=== PATIENT | male | born 1990 | race Caucasian/White ===

== ENCOUNTER 2017-01-19 08:24 | Emergency (ER) | payer MEDICARE, OTHER ==
[2017-01-19 09:00] LABS: Urine Drugs of Abuse Note Disclamer
[2017-01-19 09:12] LABS: Basophils % (Auto) 1.5 % (0.0-1.8); Eosinophils % (Auto) 5.5 % (0.0-4.3); Hemoglobin 14.8 gm/dl (11.8-15.2); Mean Corpuscular HGB Conc 32 % (32-34); Mean Corpuscular Hemoglobin 31 pg (28-32); Mean Corpuscular Volume 96 fl (84-94); Platelet Count 245 K/mm3 (140-440); Red Blood Count 4.81 M/mm3 (3.65-5.03); Red Cell Distribution Width 13.2 % (13.2-15.2); White Blood Count 5.7 K/mm3 (4.5-11.0)
[2017-01-19 09:14] LABS: Bilirubin,Urine NEG (Negative); Blood,Urine NEG (Negative); Ketones,Urine NEG (Negative); Leukocyte Esterase,Urine NEG (Negative); Mucus,Urine FEW /HPF; Nitrite,Urine NEG (Negative); Protein,Urine <15 mg/dL mg/dL (Negative); Urobilinogen,Urine < 2.0 mg/dL (<2.0)
[2017-01-19 09:19] LABS: Anion Gap 17 mmol/L; Blood Urea Nitrogen 6 mg/dL (9-20); Calcium 9.2 mg/dL (8.4-10.2); Carbon Dioxide 27 mmol/L (22-30); Chloride 100.9 mmol/L (98-107); Glucose 96 mg/dL (75-100); Potassium 4.6 mmol/L (3.6-5.0); Sodium 140 mmol/L (137-145)
[2017-01-19] MEDS ORDERED: HALDOL IM ONE (09:19)
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
[2017-01-19] MEDS ORDERED: HALDOL PO PRN (10:00)
[2017-01-19] MEDS ORDERED: BENZTROPINE 1 MG PO SCH (10:00)
[2017-01-19] MEDS ORDERED: HALDOL 5 MG PO SCH (10:00)
[2017-01-19] MEDS: COGENTIN PO SCH ×2 (10:17→22:21)
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
[2017-01-19] MEDS: ATIVAN IM PRN (15:56)
[2017-01-19] MEDS ORDERED: HALDOL PO SCH (22:00)
[2017-01-19] MEDS: HALDOL PO SCH (22:39)
[2017-01-20] MEDS ORDERED: HALDOL PO SCH (10:00)
[2017-01-20] MEDS: COGENTIN PO SCH ×2 (10:38→22:28)
[2017-01-20] MEDS: HALDOL PO SCH ×2 (10:38→22:28)
--- NOTE | 2017-01-20 14:17 | Progress Note ---
Subjective - Reason for Consult Consult date: 01/20/17 Reason for consult: Psychiatry Follow-up - Chief Complaint Chief complaint: "When can I leave" The patient is brought to the hospital by EMS and his family for aggressive behavior. Today patient is calm and cooperative during the assessment. He stated that he would like to be discharged soon, because he want to "head" to [place]. During our conversation, the patient would answer in third person. He stated, "I talk like this all the time." Per the staff, no behavioral disturbances overnight. He denies SI/HI's, AVH's, and depression. He denies any side effects of his medications. Mental Status Exam - Vital signs Last Vital Signs Temp 98.2 F 01/20/17 12:00 Pulse 80 01/20/17 12:00 Resp 16 01/20/17 12:00 BP 122/78 01/20/17 12:00 Pulse Ox 100 01/20/17 12:00 - Exam Narrative exam: MSE: Appearance: calm, cooperative Behavior: regular eye contact Speech: regular rate and tone Mood: "good" Affect: congruent to mood Thought Process: circumstantial Thought Content: denies SI/HI's and AVH's Motor Activity: ambulatory Cognition: A/Ox 3 Insight: limited Judgment: limited Assessment and Plan Impression: Historical Dx: Schizophrenia paranoid type. Unspecified Psychotic DO. Substance Use DO (marijuana). Today patient is calm and cooperative during the assessment. Positive for marijuana. Recommendation/Plan: Evaluate 1013 in 24 hours to determine proper dispo. Continue Haldol 5 mg PO BID for Schizophrenia and Cogentin 1 mg BID for EPS prevention. Patient maybe a candidate for long acting antipsychotic monthly injection.
[2017-01-20] MEDS: ATIVAN IM PRN (20:03)
--- NOTE | 2017-01-21 08:48 | Progress Note ---
Subjective - Reason for Consult Reason for consult: psych consult - Chief Complaint Chief complaint: 26 year old BM. Currently the patient notes that he is doing well. He continues to be preoccupied with returning home. There hasn't been any acute issues per nursing. He denies any SI/HI/AH/VH. No physical aggression per staff. He notes that he has to take his meds at home. Mental Status Exam - Vital signs Last Vital Signs Temp 98 F 01/20/17 20:04 Pulse 76 01/20/17 20:04 Resp 18 01/20/17 20:04 BP 127/69 01/20/17 20:04 Pulse Ox 100 01/20/17 20:04 - Exam Orientation: time, place Affect: normal Mood: appropriate Thought content: other (perseverence) Perceptions: none Speech: normal rate and pattern Concentration: distractible Motor activity: normal Level of consciousness: alert Memory: Intact Interaction: pleasant Assessment and Plan Impression: Historical Dx: Schizophrenia paranoid type. Unspecified Psychotic DO. Substance Use DO (marijuana). Today patient is calm and cooperative during the assessment. Positive for marijuana. Recommendation/Plan: Rescind 1013. At this time we need the collateral from his father to determine whether patient is at baseline. He does have an intellectual disability and as such may have minimal understanding of his illness and actions. His family can help us determine whether he continues to pose any risk of harm. Here he hasn't shown any acute concerns and is safe for coming off the 1013.
[2017-01-21] MEDS: COGENTIN PO SCH (09:41)
[2017-01-21] MEDS: HALDOL PO SCH (09:41)
[2017-01-21 14:07] VITALS: BP 117/68
== END 2017-01-21 14:15 ==
LOC: ED 08:24 → EEVIPCON 08:24 → ED 01-21 14:15
DX: F31.9 Bipolar disorder, unspecified (principal); F20.9 Schizophrenia, unspecified; F17.210 Nicotine dependence, cigarettes, uncomplicated; F12.10 Cannabis abuse, uncomplicated
CPT/HCPCS: 36415; 80048; 80307; 81001; 82550; 85025; 96372; 99285; G0480; J1630; J2060; 80320